=== PATIENT | female | born 1945 | race Caucasian/White ===

== ENCOUNTER → 2016-11-16 | Outpatient (CLI) | payer OTHER, MEDICARE ==
[~2016-11-16] MED LIST: ACET-1138 PO; AMB5 PO; ASPEC81 PO; CHOL1000 PO; CLB200 PO; CLC100 PO; DIPH25CA50 PO; DLCS PR; MOMLX PO; MULT-589 PO; OXYSR10 PO; PRT40 PO; RXC5 PO; SODI1ENE16 PR; TRIA0.1C55 TOP
[2016-11-16 15:01] LABS: CHOLESTEROL/HDL RATIO 3.6
== END | disposition home or self-care (01) ==
LOC: C.LABMFLN 10:19
PROVIDERS: ATTEND Family Medicine
DX: M85.80 Other specified disorders of bone density and structure, unspecified site (principal); E55.9 Vitamin D deficiency, unspecified; Z13.220 Encounter for screening for lipoid disorders; I50.30 Unspecified diastolic (congestive) heart failure; Z13.1 Encounter for screening for diabetes mellitus